=== PATIENT | female | born 1955 | race Caucasian/White ===

== ENCOUNTER 2016-11-26 15:02 | Emergency (ER) | payer OTHER ==
[~2016-11-26] VITALS: Ht 165.1 cm; Wt 63.0 kg
[~2016-11-26 15:02] MED LIST: ACET-818 PO; ASPI81TA3 PO; OXCA600T30 PO; PANT40TA3 PO; TOPI200T8 PO
[2016-11-26 15:20] VITALS: Ht 165.1 cm; Wt 63.0 kg
[2016-11-26] MEDS ORDERED: ONDANSETRON (ODT) 4 MG TAB ODT STA (16:03)
[2016-11-26 16:17] LABS: URINE BLOOD (Dip) POC Negative (NEGATIVE)
[2016-11-26] MEDS ORDERED: LIDOCAINE/MYLANTA 40 ML BTL PO ONE (16:30)
--- NOTE | 2016-11-26 17:34 | ERD ---
ER Documentation Chief Complaint Date/Time DATE: 11/26/16 TIME: 17:21 Chief Complaint FEVER, COUGH, ST, AP, MALAISE, HEADACHE X3 DAYS. HPI Pleasant 60-year-old female presenting to emergency today with sore throat, cough, headache, and stomach pain, symptoms started 3 days ago, patient reports headache, and fatigue, patient has tried no buof-jda-uxzunnc cold medication for cough, runny nose, or headache, reports that she has tried drinking rice water for her abdominal pain, pain is located in the epigastrium, does not radiate, patient reports history of heartburn uses Pepto-Bismol in the past. Patient also reports seizure disorder, on Topamax and Depakote, last seizure over a year ago. Patient denies any dysuria, diarrhea, or chills. She denies dizziness, chest pain, shortness of breath, palpitations. ROS All systems reviewed and are negative except as per history of present illness. Medications Home Meds Active Scripts Famotidine* (Pepcid*) 20 Mg Tablet, 20 MG PO BID for 30 Days, #60 TAB Prov:HELENETHAN 11/26/16 Fluticasone Propionate (Flonase Allergy Relief) 9.9 Ml [place].susp, 1 SPRAY NASAL BID, #1 BOTTLE TO EACH NOSTRIL Prov:HELENETHAN 11/26/16 [ipratropium ] No Conflict Check Prov:HELEN,ETHAN 11/26/16 Reported Medications Pantoprazole* (Protonix*) 40 Mg Tablet.dr, 40 MG PO DAILY, TAB 08/27/15 Aspirin* (Aspirin* Chew) 81 Mg Tab.chew, 81 MG PO DAILY, TAB.CHEW 08/27/15 Topiramate* (Topiramate*) 200 Mg Tablet, 200 MG PO BID, TAB 08/27/15 Oxcarbazepine* (Oxcarbazepine*) 600 Mg Tablet, 1200 MG PO BID, TAB 08/27/15 Acetaminophen-Codeine* (Tylenol No.3*) 300-30 Mg Tablet, 1 TAB PO Q6 Y for PAIN , TAB 08/27/15 Allergies Allergies: Coded Allergies: phenytoin (Verified Allergy, Severe, GUM INFLAMMATION, 08/27/15) PMhx/Soc History of Surgery: Yes (AUG 2016- PACEMAKER PLACEMENT) Anesthesia Reaction: No Hx Neurological Disorder: Yes (SEIZURES) Hx Respiratory Disorders: No Hx Cardiac Disorders: Yes (BRADYCARDIA) Hx Psychiatric Problems: No Hx Miscellaneous Medical Probl: No Hx Alcohol Use: No Hx Substance Use: No Hx Tobacco Use: No Smoking Status: Never smoker Physical Exam Vitals Vital Signs Date Time Temp Pulse Resp B/P Pulse Ox O2 Delivery O2 Flow Rate FiO2 11/26/16 18:21 99.2 77 16 136/75 97 Room Air 11/26/16 15:20 99.2 78 16 142/70 97 Vitals are stable, nursing notes reviewed Physical Exam Const: No acute distress Head: Atraumatic Eyes: Normal Conjunctiva, no pallor or jaundice, positive EOMI, PERRLA ENT: Right tympanic membrane not visualized related to cerumen impaction, left tympanic membrane translucent, nasal mucosa edematous, +3, nasal septum midline without bleeding points. Pharynx moist, injected, yellow white mucus noted posteriorly, uvula rises and falls with pronation. Neck: Full range of motion..~ No meningismus. No JVD Resp: Clear to auscultation bilaterally, no rales wheezes or rhonchi Cardio: Regular rate and rhythm, no murmurs, S1-S2, no S3-S4. Abd: Soft, symmetric, flat, epigastric tenderness, negative McBurney's point tenderness, no Wooten's sign. Normal bowel sounds Skin: No petechiae or rashes Back: No midline or flank tenderness Ext: No cyanosis, or edema Neur: Awake and alert Psych: Normal Mood and Affect Results 24 hrs Laboratory Tests Test 11/26/16 16:20 Bedside Urine Blood Negative Bedside Urine Glucose (UA) Negative Bedside Urine Ketones (LAB) Negative Bedside Urine Leukocyte Esterase (L Negative Bedside Urine Nitrite (LAB) Negative Bedside Urine Protein (LAB) Negative Bedside Urine pH (LAB) 7.0 Current Medications Medications (Trade) Dose Ordered Sig/Elfego Route PRN Reason Start Time Stop Time Status Last Admin Dose Admin Miscellaneous Medication (Gi Cocktail (2)) 40 ml ONCE ONCE PO 11/26/16 16:30 11/26/16 16:31 DC 11/26/16 16:18 Ondansetron HCl (Zofran Odt) 4 mg ONCE STAT ODT 11/26/16 16:03 11/26/16 16:05 DC 11/26/16 16:18 Procedures/MDM Pleasant 60-year-old female presenting to emergency department today with 3 day history of upper respiratory infection, headache, cough, malaise, sore throat. Patient also has complaint of epigastric pain, reports history of gastritis, patient states gastritis usually happens at time of seizure activity, patient has not had a seizure in 12 months controlled on Depakote and Topamax, vital signs and physical exam findings consistent with a viral respiratory infection, with symptoms of gastritis. A bacterial infection is not likely at this time but unable to rule out H. pylori as ultimate source of gastritis. I feel the patient is stable for discharge at this time. I feel patient is a candidate for symptomatically with Atrovent nasal spray, Tylenol, and a trial of Pepcid. and outpatient follow-up with primary care physician I have discussed results, examination findings, the treatment plan with the patient and family present prior to discharge. Indications for emergent reevaluation, side effects of medication were also discussed. All questions were answered. Patient verbalizes understanding and agrees with plan of care. Departure Diagnosis: Primary Impression: Viral syndrome Additional Impression: Gastritis Condition: Good Patient Instructions: Viral Syndrome (Adult) Comments Thank you for for coming to [facility] for your care today. Please ask your nurse or provider if you have questions about your care today and do not leave until all your questions have been answered. Please use any medications given as directed and follow-up with your doctor (or the doctor you were referred to) in the next 2-3 days. If you do not have a primary care doctor you may follow up at the [facility] (listed below). You may also use motrin and tylenol as needed for fever and/or pain unless instructed otherwise by your provider or nurse. Indications for more urgent follow-up have been discussed, but you may return to the Emergency Department at ANY time for any worrisome or worsening symptoms. If you have abdominal pain, please know that no test or exam you received is perfect and you should follow up within 8 hours for continued pain. If you had any imaging studies today, such as an X-Ray or CT Scan, these studies will be reviewed later by a radiologist. You will be called if there are important findings that were not identified today, so make sure the contact information you provided at registration is correct. If you received any narcotic pain control medicine today, such as Vicodin, Morphine or Dilaudid, your coordination and judgment may be affected for a number of hours. Please do not drive or operate heavy machinery, and you may want someone to assist you at home. If you were given a prescription for narcotic medication, be aware that it is very addictive- use sparingly and only if necessary. ETHAN CERVANTES Nov 26, 2016 17:32
[2016-11-26] MEDS ORDERED: AZEL205. NASAL (17:36)
[2016-11-26] MEDS ORDERED: ipratropium (17:36)
[2016-11-26] MEDS ORDERED: FLUT9.9S NASAL (17:41)
[2016-11-26] MEDS ORDERED: FAMO-18 PO (17:41)
[2016-11-26 18:21] VITALS: BP 136/75; PULSE 77; RESP 16; TEMP 99.2
== END 2016-11-26 18:22 | disposition home or self-care (01) ==
LOC: FTE 15:02
DX: B34.9 Viral infection, unspecified (principal); K29.70 Gastritis, unspecified, without bleeding; Z79.82 Long term (current) use of aspirin; Z95.0 Presence of cardiac pacemaker
CPT/HCPCS: 81003; Z7502; Z7610; 99283

== ENCOUNTER 2017-05-13 08:11 | Day surgery (SDC) | payer OTHER ==
[~2017-05-13] VITALS: Ht 152.4 cm; Wt 61.8 kg
[~2017-05-13 08:11] MED LIST changes: +FAMO-96 PO; +FLUT9.9S NASAL; +ipratropium
[2017-05-13 08:24] VITALS: Ht 152.4 cm; Wt 61.8 kg
[2017-05-13] MEDS ORDERED: ATOR40TA68 PO (08:27)
[2017-05-13] MEDS ORDERED: OMEP20CA16 PO (08:27)
[2017-05-13] MEDS ORDERED: FENTAnyl 50 MCG/ML VIAL ONE (08:31)
[2017-05-13] MEDS ORDERED: MIDAZOLAM 1 MG/ML 2 ML INJ ONE (08:31)
[2017-05-13] MEDS ORDERED: PROPOFOL 20 ML ONE (08:31)
[2017-05-13 08:45] VITALS: BP 112/81; PULSE 68; RESP 25
--- NOTE | 2017-05-13 09:16 | OPPN ---
Date/Time of Note Date/Time of Note DATE: 05/13/17 TIME: 09:11 Proc Note GI Procedure date: May 13, 2017 Pre-procedure Diagnosis Screening colonoscopy Post-procedure Diagnosis Minimal internal and external hemorrhoids Operation Performed Colonoscopy Surgeon: FLORENCIO MENDIOLA MD Anesthesia Type: MAC Anesthesiologist: WALE PETERSON MD Estimated blood loss: none Transfusion Required: no Specimen: none Specimens None Grafts/Implants: none Complications: no Complications None Pt Condition post procedure: stable Disposition: other Indications Rule out colon polyps Operative\Procedure Findings Colonoscopy After the informed written consent is obtained patient was ostial in the left lateral side intravenous anesthesia was given by anesthesiologist Dr. Crane The patient become somnolent Olympus video colonoscope was introduced into the rectum and scope was advanced all the way to the cecum Entire colon was examined thoroughly no evidence of polyps or any other abnormality detected On the way out retroflexion was performed minimal internal hemorrhoids were noted. When the scope was withdrawn minimal external hemorrhoids were noted and the procedure was terminated Plan recommend repeat colonoscopy in 10 years Ben [email or web address].FLORENCIO Prather MD May 13, 2017 09:16
[2017-05-13 09:36] VITALS: BP 108/68; PULSE 69; RESP 14
== END 2017-05-13 12:15 | disposition home or self-care (01) ==
LOC: GIL 08:11
PROVIDERS: ATTEND Internal Medicine Gastroenterology
DX: Z12.11 Encounter for screening for malignant neoplasm of colon (principal); K64.8 Other hemorrhoids; K64.4 Residual hemorrhoidal skin tags; I10 Essential (primary) hypertension
CPT/HCPCS: 45378; J2250; J3010; Z7610